=== PATIENT | female | born 1955 ===

== ENCOUNTER 2023-12-22 11:15 | Inpatient (IN) | payer OTHER ==
[~2023-12-22] VITALS: Ht 160 cm; Wt 56.2 kg
[2023-12-22] MEDS ORDERED: CHILDREN'S ASPI81 MG PO (14:33)
[2023-12-28] MEDS ORDERED: METRONIDAZOLE/SODIUM CHLORIDE 500 MG/100 ML PIGGYBACK IV ONE (07:04)
[2023-12-28] MEDS ORDERED: BUPIVACAINE HCL/PF 0.5% 30ML ML ONE (07:09)
[2023-12-28] MEDS ORDERED: LIDOCAINE HCL/EPINEPHRINE 10MG/ML 1% 50ML IJ ONE (07:09)
[2023-12-28] MEDS ORDERED: LIDOCAINE HCL/EPINEPHRINE 20 ML VIAL IJ ONE ×2 (07:09→09:00)
[2023-12-28] MEDS ORDERED: METRONIDAZOLE/SODIUM CHLORIDE 500 MG/100 ML PIGGYBACK IV SCH (08:45)
[2023-12-28] MEDS ORDERED: levoFLOXacin IN DEXTROSE 5 % 5 MG/ML PIGGYBAG IV SCH (08:45)
[2023-12-28] MEDS ORDERED: BUPIVACAINE HCL/PF 0.5% 5MG/ML VIAL IV ONE (09:00)
[2023-12-28] MEDS ORDERED: MORPHINE SULFATE 4 MG/ML CARTRIDGE IV PRN (09:15)
[2023-12-28] MEDS ORDERED: ONDANSETRON HCL 2 MG/ML VIAL IV PRN (09:15)
[2023-12-28] MEDS ORDERED: DEXTROSE 50 % IN WATER 0.5 G/ML DISP.SYRIN IV PRN (09:15)
[2023-12-28] MEDS ORDERED: OxyCODONE HCL 5 MG TABLET (ROXICODONE) PO PRN (09:15)
[2023-12-28] MEDS ORDERED: RINGERS SOLUTION,LACTATED 1,000 ML IV SCH (09:15)
[2023-12-28 10:26] LABS: HEMOGLOBIN 13.1 g/dL (12.0-15.00); MEAN CORPUSCULAR HEMOGLOBIN 28.2 pg (27.00-32.0); MEAN CORPUSCULAR HGB CONC 33.5 g/dl (32.0-36.0); PLATELET COUNT 338 K/uL (150-450); RED BLOOD COUNT 4.64 M/uL (4.00-6.00); RED CELL DISTRIBUTION WIDTH 13.4 % (11.5-14.5)
[2023-12-28 10:37] LABS: ALBUMIN 3.4 gm/dL (3.4-5.0); CALCIUM 8.4 mg/dL (8.5-10.1); CREATININE SERUM 0.66 mg/dL (0.55-1.02); GFR 89.6; MAGNESIUM 2.1 mg/dL (1.8-2.4); PHOSPHOROUS 3.1 mg/dL (2.5-4.9); POTASSIUM 3.73 mEq/L (3.5-5.1)
[2023-12-28] MEDS ORDERED: ENALAPRILAT DIHYDRATE 1.25 MG/ML VIAL IV PRN (12:15)
[2023-12-28] MEDS ORDERED: HYOSCYAMINE SULFATE 0.125 MG TAB.SUBL SL SCH (13:00)
[2023-12-28] MEDS ORDERED: ACETAMINOPHEN 500 MG GEL..CAP PO SCH (14:00)
[2023-12-28] MEDS ORDERED: GABAPENTIN 300 MG CAPSULE PO SCH (17:00)
[2023-12-28] MEDS ORDERED: POLYETHYLENE GLYCOL 3350 17 GM BLIST.PACK PO SCH (17:00)
[2023-12-28] MEDS ORDERED: FAMOTIDINE/PF 20 MG/2 ML VIAL IV PUSH SCH (21:00)
[2023-12-28] MEDS ORDERED: CELECOXIB 200 MG CAPSULE PO SCH (21:00)
[2023-12-29 05:03] LABS: HEMATOCRIT 37.1 % (36.0-45.00); HEMOGLOBIN 12.6 g/dL (12.0-15.00); MEAN CELL VOLUME 84.5 fL (80.00-100.00); MEAN CORPUSCULAR HEMOGLOBIN 28.8 pg (27.00-32.0); MEAN CORPUSCULAR HGB CONC 34.1 g/dl (32.0-36.0); PLATELET COUNT 280 K/uL (150-450); RED BLOOD COUNT 4.39 M/uL (4.00-6.00); RED CELL DISTRIBUTION WIDTH 13.2 % (11.5-14.5)
[2023-12-29 05:36] LABS: ALBUMIN 2.8 gm/dL (3.4-5.0); CALCIUM 8.4 mg/dL (8.5-10.1); CREATININE SERUM 0.53 mg/dL (0.55-1.02); GFR 115.41; MAGNESIUM 2.1 mg/dL (1.8-2.4); PHOSPHOROUS 2.6 mg/dL (2.5-4.9); POTASSIUM 4.12 mEq/L (3.5-5.1)
[2023-12-29] MEDS ORDERED: IRBESARTAN 75 MG TABLET PO SCH (09:00)
[2023-12-29] MEDS ORDERED: ENOXAPARIN SODIUM 40 MG/0.4 ML SYRINGE SUBCUTANEO SCH (17:00)
[2023-12-30 05:57] LABS: HEMATOCRIT 35.7 % (36.0-45.00); HEMOGLOBIN 12.1 g/dL (12.0-15.00); MEAN CELL VOLUME 85.1 fL (80.00-100.00); MEAN CORPUSCULAR HEMOGLOBIN 28.9 pg (27.00-32.0); PLATELET COUNT 275 K/uL (150-450); RED BLOOD COUNT 4.19 M/uL (4.00-6.00); RED CELL DISTRIBUTION WIDTH 13.3 % (11.5-14.5)
[2023-12-30] MEDS ORDERED: ENOXAPARIN SODIUM 40 MG/0.4 ML SYRINGE SUBCUTANEO SCH (09:00)
[2023-12-30 20:51] LABS: CREATININE SERUM 0.5 mg/dL (0.55-1.02); GFR 123.44; MAGNESIUM 2.1 mg/dL (1.8-2.4); PHOSPHOROUS 3.1 mg/dL (2.5-4.9); POTASSIUM 4.67 mEq/L (3.5-5.1)
[2023-12-31] MEDS ORDERED: ACETAMINOPHEN500 M1 PO (10:31)
[2023-12-31] MEDS ORDERED: NEURONTIN300 MG PO (10:31)
[2023-12-31] MEDS ORDERED: QUESTRAN POWDE378 GM PO (10:32)
== END 2023-12-31 12:16 | disposition home or self-care (01) | DRG 330 ==
LOC: SURG 12-28 05:27 → O/R 12-28 05:27 → SURH 12-28 10:30 → SURG 12-28 10:52 → SURH 12-28 11:15 → SURG 12-31 12:16
PROVIDERS: Internal Medicine Geriatric Medicine; ADMIT Surgery; ATTEND Surgery
PROC: 0DBP4ZZ Excision of Rectum, Percutaneous Endoscopic Approach (ICD-10-PCS; 2023-12-28)
PROC: 07BB4ZZ Excision of Mesenteric Lymphatic, Percutaneous Endoscopic Approach (ICD-10-PCS; 2023-12-28)
PROC: 0DJD8ZZ Inspection of Lower Intestinal Tract, Via Natural or Artificial Opening Endoscopic (ICD-10-PCS; 2023-12-28)
PROC: 0DTN4ZZ Resection of Sigmoid Colon, Percutaneous Endoscopic Approach (ICD-10-PCS; principal; 2023-12-28 10:30)
DX: D12.5 Benign neoplasm of sigmoid colon (principal); K51.40 Inflammatory polyps of colon without complications; R59.0 Localized enlarged lymph nodes; N99.4 Postprocedural pelvic peritoneal adhesions; I10 Essential (primary) hypertension